=== PATIENT | male | born 1980 | race Caucasian/White ===

== ENCOUNTER 2017-06-23 10:22 | Emergency (ER) | payer BC, OTHER ==
[2017-06-23 11:07] VITALS: BP 145/74
--- NOTE | 2017-06-23 12:32 | UC ---
Throat Pain/Nasal Danny HPI - HPI Summary HPI Summary: cough, sore throat, hurts to swallow, earache both ears, taking otc med without relief. not sure if he had a fever he didnt check but no chills symptoms x 1 week now - History of Current Complaint Chief Complaint: UCRespiratory Stated Complaint: SINUS/EAR/ST/EYE COMPLAINT Time Seen by Provider: 06/23/17 12:25 Pain Intensity: 5 - Allergies/Home Medications Allergies/Adverse Reactions: Allergies Allergy/AdvReac Type Severity Reaction Status Date / Time No Known Allergies Allergy Verified 06/23/17 11:01 Home Medications: Home Medications Guaifen/Phenyleph/Acetaminophn [Tylenol Sinus Severe Caplet] 2 each PO ONCE PRN 06/23/17 [History Confirmed 06/23/17] Ibuprofen TAB* [Advil TAB*] 800 mg PO Q6H PRN 06/23/17 [History Confirmed ] PMH/Surg Hx/FS Hx/Imm Hx Previously Healthy: Yes - Surgical History Surgical History: None - Family History Known Family History: Positive: Hypertension - Social History Lives: With Family Alcohol Use: Occasionally Substance Use Type: None Smoking Status (MU): Never Smoked Tobacco Review of Systems Constitutional: Negative Skin: Negative Eyes: Negative ENT: Sore Throat, Ear Ache, Nasal Discharge, Sinus Congestion Respiratory: Cough - nonprod Cardiovascular: Negative Gastrointestinal: Negative Genitourinary: Negative Motor: Negative Neurovascular: Negative Musculoskeletal: Negative Is Patient Immunocompromised?: No All Other Systems Reviewed And Are Negative: Yes Physical Exam Triage Information Reviewed: Yes Appearance: Ill-Appearing Vital Signs: Initial Vital Signs Temp 99 F 06/23/17 11:03 Pulse 93 06/23/17 11:03 Resp 18 06/23/17 11:03 BP 145/74 06/23/17 11:03 Pulse Ox 98 06/23/17 11:03 Vital Signs Reviewed: Yes Eye Exam: Normal ENT: Positive: Pharyngeal erythema, TM bulging, TM red - right ear Respiratory Exam: Normal Cardiovascular Exam: Normal Neurological Exam: Normal Psychological Exam: Normal Skin Exam: Normal Throat Pain/Nasal Course/Dx - Course Course Of Treatment: take abx with food to reduce gi upset - discussed use and common s/e. increase fluids daily while on abx to prevent dehydration. tylenol or ibuprofen every 4-6 hrs prn pain/temp dose as directed on bottle. f/ u if symptoms not resolving - Differential Dx/Diagnosis Provider Diagnoses: otitis media - right / sinusitis Discharge - Discharge Plan Condition: Good Disposition: HOME Prescriptions: Amoxicillin PO (*) [Amoxicillin 875 MG (*)] 875 mg PO BID 10 Days #20 tab Patient Education Materials: Sinusitis (ED), Ear Infection (ED) Referrals: No Primary Care Phys,NOPCP [Primary Care Provider] - 1 Week (pcp)
== END 2017-06-23 12:55 | disposition home or self-care (01) ==
LOC: UCCORT 10:22
DX: H66.91 Otitis media, unspecified, right ear (principal); J32.9 Chronic sinusitis, unspecified
CPT/HCPCS: 99202; G0463